=== PATIENT | female | born 1955 | race Caucasian/White ===

== ENCOUNTER → 2016-10-07 | Outpatient (CLI) | payer OTHER ==
[~2016-10-07] MED LIST: VICODIN 5/1 TAB 5/50 PO
--- NOTE | ~2016-10-07 | MY29 ---
[facility] A Service of [facility] RADIOLOGY TEXT RESULTS PATIENT: BIA PULIDO LOCATION: [facility] : 59 UNIT #: [id number] AGE: [address]: LESLY MCCLENDON SEX: F ORDER DR: [id number] [facility] [place] [facility]. [place], [place] [address] [id number] O MR#: [id number] Acc #: [id number] NAME: BIA PULIDO : 1955 SEX: F STUDY DATE/TIME: 10/07/2016 13:36 UNIT: [facility] ROOM: STUDY DESCRIPTION: MY BRITTNEE SCREENING W/ CAD BILAT Attending Physician: Lesly Mcclendon Aprn Referring Physician: Lesly Mcclendon Aprn Ordering Physician: Lesly Mcclendon Aprn Primary Care Physician: Lesly Mcclendon Aprn MEDICAL IMAGING REPORT This report is preliminary unless electronic signature is present EXAM Bilateral digital screening mammogram with CAD. COMPARISON None available. Prior mammograms were performed many years ago. INDICATIONS Breast cancer screening. 61-year-old asymptomatic female with history of benign excisional biopsy of both breast. She reports a sister with postmenopausal breast cancer. FINDINGS There are scattered fibroglandular densities. There are no suspicious findings in either breast. IMPRESSION No mammographic evidence of malignancy. Continued annual screening mammography and clinical breast exam are recommended. Patients over the age of 40 are entered into a reminder system with target due date for the next mammogram. A result letter will also be sent to the patient. BIRADS: 1 Negative. Dictated by... Abner Umanzor M.D. THIS IS AN ELECTRONICALLY VERIFIED REPORT Abner Umanzor M.D. at 10/08/2016 9:25 AM GAMA/jt [facility] A Service of [facility] RADIOLOGY TEXT RESULTS PATIENT: BIA PULIDO LOCATION: [facility] : 59 UNIT #: [id number] AGE: [address]: MCCLENDON,[employer] SEX: F ORDER DR: TD: 10/07/2016 19:51 JOB #: [id number] MEDICAL IMAGING REPORT Page 1 of 1 COPY
== END | disposition home or self-care (01) ==
LOC: CWCC 13:12
DX: Z12.31 Encounter for screening mammogram for malignant neoplasm of breast (principal); Z80.3 Family history of malignant neoplasm of breast
CPT/HCPCS: G0202